=== PATIENT | female | born 1970 | race Two or more races ===

== ENCOUNTER 2016-09-12 17:10 | Emergency (ER) | payer MEDICAID ==
[~2016-09-12] VITALS: Ht 170.2 cm; Wt 123.0 kg
[2016-09-12] MEDS ORDERED: SODIUM CHLORIDE 0.9% 1,000 ML IV ONE (22:26)
[2016-09-12] MEDS ORDERED: KETOROLAC 30MG/ML VIAL IV STA (22:26)
[2016-09-12] MEDS ORDERED: FAMOTIDINE 20MG/2ML VIAL IV ONE (22:30)
[2016-09-12 22:44] LABS: CLARITY URINE CLOUDY (CLEAR); COLOR URINE YELLOW (YELLOW); GLUCOSE URINE NEGATIVE (NEGATIVE); KETONES URINE TRACE (NEGATIVE); LEUKOCYTE ESTERASE URINE TRACE (NEGATIVE); NITRITE URINE NEGATIVE (NEGATIVE); OCCULT BLOOD URINE 3+ (NEGATIVE); PH URINE 6.5 (4.5-8.0); PROTEIN URINE TRACE (NEGATIVE); SPECIFIC GRAVITY URINE 1.032 (1.005-1.030)
[2016-09-12 22:47] LABS: BASOPHILS % 0.8 % (0.0-2.0); DIFFERENTIAL COMMENT 0; HEMATOCRIT. 31.4 % (36.0-48.0); HEMOGLOBIN. 9.7 g/dL (12.0-16.0); LYMPHOCYTES % 43.6 % (20.0-50.0); MEAN CORPUSCULAR HGB CONC 30.9 g/dL (31.0-37.0); MEAN CORPUSCULAR VOLUME 71.1 fL (81.0-99.0); MEAN PLATELET VOLUME 7.4 fl (7.4-10.4); MONOCYTES % 7.3 % (2.0-8.0); NEUTROPHILS % 46.3 % (40.0-76.0); PLATELET 354 x1000/uL (130-400); RED BLOOD CELL COUNT 4.41 mill/uL (4.2-5.4); RED CELL DISTRIBUTION WIDTH 19.8 % (11.6-14.6); WHITE BLOOD COUNT 8.5 x1000/uL (4.5-11.0)
[2016-09-12 22:55] LABS: ALBUMIN 3.4 g/dL (3.4-5.0); ANION GAP 14; CALCIUM 9.2 mg/dL (8.5-10.1); CARBON DIOXIDE 24 mEq/L (21-32); CHLORIDE 107 mEq/L (98-107); INDEX HEMOLYSI 1 (1-3); INDEX ICTERIC 1 (1-4); INDEX LIPEMIC 1 (1-3); LIPASE 112 IU/L (73-393); UREA NITROGEN BLOOD 13 mg/dL (7-21)
[2016-09-12 22:58] LABS: ALANINE AMINOTRANSFERASE 22 IU/L (13-61); eGFR > 60 mL/min (>60)
[2016-09-12 22:59] LABS: BACTERIA URINE 2+; RBC URINE 0-2 /hpf (0-2); SQUAMOUS EPITHELIAL CELL URINE 1+ /lpf (RARE/1+); WBC URINE 0-2 /hpf (0-2)
[2016-09-12 23:09] LABS: HCG SCREEN NEGATIVE
[2016-09-13] MEDS ORDERED: MORPHINE SULFATE 4 MG/ML CPJ (NOT FOR IM USE) IV ONE (00:30)
[2016-09-13] MEDS ORDERED: OMEPRAZOLE 20MG CAPSULE EXTENDED RELEASE PO ONE (00:30)
[2016-09-13 01:50] VITALS: BP 130/73
== END 2016-09-13 02:20 | disposition home or self-care (01) ==
LOC: ER 17:10
DX: N39.0 Urinary tract infection, site not specified (principal); K21.9 Gastro-esophageal reflux disease without esophagitis; D64.9 Anemia, unspecified; K80.20 Calculus of gallbladder without cholecystitis without obstruction; J44.9 Chronic obstructive pulmonary disease, unspecified; J45.909 Unspecified asthma, uncomplicated; I10 Essential (primary) hypertension; E11.9 Type 2 diabetes mellitus without complications; Z87.442 Personal history of urinary calculi; G43.909 Migraine, unspecified, not intractable, without status migrainosus
CPT/HCPCS: 36415; 76700; 80053; 81001; 83690; 84703; 85025; 96361; 96374; 96375; 99285; J1885; J2270; J3490; J7030; Z7610

== ENCOUNTER 2018-07-10 00:33 | Emergency (ER) | payer MEDICAID ==
[~2018-07-10] VITALS: Ht 170.2 cm; Wt 130.0 kg
[2018-07-10 00:42] VITALS: BP_SYST 87
== END 2018-07-10 01:30 | disposition left against medical advice (07) ==
LOC: ER 00:33
DX: Z53.21 Procedure and treatment not carried out due to patient leaving prior to being seen by health care provider (principal); J44.9 Chronic obstructive pulmonary disease, unspecified; I12.9 Hypertensive chronic kidney disease with stage 1 through stage 4 chronic kidney disease, or unspecified chronic kidney disease; E11.22 Type 2 diabetes mellitus with diabetic chronic kidney disease; N18.9 Chronic kidney disease, unspecified; Z96.659 Presence of unspecified artificial knee joint

== ENCOUNTER 2018-07-12 19:18 | Inpatient (IN) | payer MEDICAID, OTHER ==
[~2018-07-12] VITALS: Ht 171.4 cm; Wt 129.3 kg
[2018-07-13] MEDS ORDERED: ASPIRIN 325MG EC TABLET PO ONE (01:15)
[2018-07-13] MEDS ORDERED: IPRATROPIUM BROMIDE (0.02%) 0.5MG/2.5ML NEB HHN NR (01:22)
[2018-07-13] MEDS ORDERED: ALBUTEROL (0.083%) 2.5MG/3ML NEB HHN NR (01:22)
[2018-07-13 01:50] LABS: BASOPHILS % 0.6 % (0.0-2.0); CHLORIDE 104 mEq/L (98-107); HEMATOCRIT. 33.7 % (36.0-48.0); HEMOGLOBIN. 10.6 g/dL (12.0-16.0); LYMPHOCYTES % 42.1 % (20.0-50.0); MEAN CORPUSCULAR HEMOGLOBIN 23.2 pg (28.0-32.0); MEAN CORPUSCULAR VOLUME 73.8 fL (81.0-99.0); MEAN PLATELET VOLUME 7.9 fl (7.4-10.4); NEUTROPHILS % 49.3 % (40.0-76.0); PLATELET 384 x1000/uL (130-400); RED BLOOD CELL COUNT 4.56 mill/uL (4.2-5.4); RED CELL DISTRIBUTION WIDTH 18.7 % (11.6-14.6)
[2018-07-13] MEDS ORDERED: ACETAMINOPHEN 500MG TABLET PO ONE (03:45)
[2018-07-13] MEDS ORDERED: MORPHINE SULFATE 4 MG/ML CPJ (NOT FOR IM USE) IV ONE (05:45)
[2018-07-13] MEDS ORDERED: ONDANSETRON 4MG ODT PO ONE (05:45)
[2018-07-13] MEDS ORDERED: MORPHINE SULFATE 4 MG/ML CPJ (NOT FOR IM USE) IV NR (10:00)
[2018-07-13] MEDS ORDERED: IPRATROPIUM/ALBUTEROL 0.5-3(2.5)MG/3ML NEB ONE (12:24)
[2018-07-13] MEDS ORDERED: CLONIDINE 0.1MG TABLET PO PRN (15:00)
[2018-07-13 22:00] VITALS: BP 184/68
[2018-07-13 22:09] VITALS: BP 184/68
[2018-07-13] MEDS: ENOXAPARIN 40MG/0.4ML SYR SUBCUT SCH (22:46)
[2018-07-13] MEDS: MORPHINE SULFATE 4 MG/ML CPJ (NOT FOR IM USE) IV PRN (22:51)
[2018-07-13] MEDS ORDERED: DEXTROSE 50% WATER 50ML SYRINGE IV PRN (23:00)
[2018-07-13 23:54] VITALS: BP 105/42
[2018-07-14] MEDS ORDERED: LIRA0.6P SQ (00:31)
[2018-07-14] MEDS ORDERED: METF-414 PO (00:31)
[2018-07-14] MEDS ORDERED: LOSA100T14 PO (00:31)
[2018-07-14] MEDS ORDERED: OMEP40CA34 PO (00:31)
[2018-07-14] MEDS ORDERED: AMLO10TA80 PO (00:31)
[2018-07-14] MEDS ORDERED: FLUT1DIS3 IH (00:31)
[2018-07-14] MEDS ORDERED: B50 PO (00:31)
[2018-07-14] MEDS ORDERED: ALBU90AE IH (00:31)
[2018-07-14] MEDS ORDERED: GABA-531 PO (00:31)
[2018-07-14] MEDS ORDERED: RANI300T4 PO (00:31)
[2018-07-14] MEDS ORDERED: MONT10TA21 PO (00:31)
[2018-07-14 04:00] VITALS: BP 122/63
[2018-07-14] MEDS: MORPHINE SULFATE 4 MG/ML CPJ (NOT FOR IM USE) IV PRN ×2 (05:45→09:37)
[2018-07-14 06:43] LABS: CHLORIDE 103 mEq/L (98-107)
[2018-07-14 06:51] LABS: LDL CHOLESTEROL 108 mg/dL (5-100)
[2018-07-14 06:52] LABS: CREATINE KINASE 35 IU/L (26-192); HDL CHOLESTEROL 44 mg/dL (40-59)
[2018-07-14] MEDS: BLOOD SUGAR DIAGNOSTIC STRIP TEST SCH ×4 (06:54→21:32)
[2018-07-14 06:55] LABS: CREATINE KINASE MB FRACTION < 1.0 ng/mL (0.5-3.6)
[2018-07-14 06:58] LABS: BASOPHILS % 0.5 % (0.0-2.0); EOSINOPHILS % 2.9 % (0.0-5.0); HEMATOCRIT. 29.5 % (36.0-48.0); HEMOGLOBIN. 9.3 g/dL (12.0-16.0); LYMPHOCYTES % 45.9 % (20.0-50.0); MEAN CORPUSCULAR HEMOGLOBIN 23.4 pg (28.0-32.0); MEAN CORPUSCULAR VOLUME 74.2 fL (81.0-99.0); MONOCYTES % 6.3 % (2.0-8.0); NEUTROPHILS % 44.4 % (40.0-76.0); PLATELET 343 x1000/uL (130-400); RED BLOOD CELL COUNT 3.97 mill/uL (4.2-5.4)
[2018-07-14 08:00] VITALS: BP 95/56
[2018-07-14] MEDS ORDERED: PNEUMOCOCCAL 23-VAL P-SAC VAC 0.5 ML IM ONE (08:00)
[2018-07-14] MEDS: INSULIN LISPRO 100 UNITS/ML SUBCUT SCH ×4 (08:04→21:00)
[2018-07-14] MEDS ORDERED: AMLODIPINE 5MG TABLET PO SCH (09:00)
[2018-07-14] MEDS ORDERED: LOSARTAN POTASSIUM 50 MG TABLET PO SCH (09:00)
[2018-07-14] MEDS: ENOXAPARIN 40MG/0.4ML SYR SUBCUT SCH ×2 (09:21→21:27)
[2018-07-14] MEDS: AMLODIPINE 2.5MG TABLET PO SCH ×2 (10:00→21:26)
[2018-07-14] MEDS: LOSARTAN POTASSIUM 25 MG TABLET PO SCH ×2 (10:00→21:26)
[2018-07-14] MEDS ORDERED: REGADENOSON 0.4 MG/5 ML IV ONE ×2 (10:15→12:53)
[2018-07-14 12:00] VITALS: BP 110/68
[2018-07-14 14:29] LABS: UCG SCREEN NEGATIVE
[2018-07-14 14:59] LABS: *AMPHETAMINES SCREEN URINE NEGATIVE (NEGATIVE); *BARBITURATES SCREEN URINE NEGATIVE (NEGATIVE); *BENZODIAZEPINES SCREEN URINE NEGATIVE (NEGATIVE); *COCAINE SCREEN URINE NEGATIVE (NEGATIVE)
[2018-07-14 15:00] LABS: CANNABINOID URINE SCREEN NEGATIVE (NEGATIVE); METHADONE URINE SCREEN NEGATIVE (NEGATIVE); OPIATES URINE SCREEN PRESUMTIVE POSITIVE (NEGATIVE); PHENCYCLIDINE URINE SCREEN NEGATIVE (NEGATIVE)
[2018-07-14 16:00] VITALS: BP 118/56
[2018-07-14 20:00] VITALS: BP 147/76
[2018-07-15] VITALS: BP 113/55
[2018-07-15] MEDS: MORPHINE SULFATE 4 MG/ML CPJ (NOT FOR IM USE) IV PRN (00:53)
[2018-07-15 04:00] VITALS: BP 116/58
[2018-07-15] MEDS: BLOOD SUGAR DIAGNOSTIC STRIP TEST SCH (06:40)
[2018-07-15] MEDS: INSULIN LISPRO 100 UNITS/ML SUBCUT SCH (07:23)
[2018-07-15 08:00] VITALS: BP 140/93
[2018-07-15] MEDS: LOSARTAN POTASSIUM 25 MG TABLET PO SCH (09:05)
[2018-07-15] MEDS: AMLODIPINE 2.5MG TABLET PO SCH (09:05)
[2018-07-15] MEDS: ENOXAPARIN 40MG/0.4ML SYR SUBCUT SCH (09:06)
[2018-07-15 10:01] VITALS: BP 135/68
== END 2018-07-15 11:54 | disposition home or self-care (01) | DRG 206 ==
LOC: ER 19:18 → 7WST 07-13 03:33 → CANRESERV 07-13 10:21 → ENRESERV 07-13 10:21
PROVIDERS: ADMIT Internal Medicine; ATTEND Internal Medicine
DX: M94.0 Chondrocostal junction syndrome [Tietze] (principal); Z68.41 Body mass index [BMI] 40.0-44.9, adult; I10 Essential (primary) hypertension; E66.9 Obesity, unspecified; E11.42 Type 2 diabetes mellitus with diabetic polyneuropathy; D64.9 Anemia, unspecified; J44.9 Chronic obstructive pulmonary disease, unspecified; Z83.3 Family history of diabetes mellitus; Z82.49 Family history of ischemic heart disease and other diseases of the circulatory system
CPT/HCPCS: 36415; 71045; 78452; 80048; 80061; 80305; 81025; 82550; 82553; 82962; 83735; 83880; 84443; 84484; 90732; 93005; 93017; 93306; 94640; 96374; 96376; 99284; A9500; J1650; J1815; J2270; J2785; J7620; Q0162